=== PATIENT | female | born 1970 | race Caucasian/White ===

== ENCOUNTER → 2020-09-17 11:54 | Outpatient (CLI) | payer MEDICAID, SELFPAY ==
[2017-04-18 21:08] VITALS: BMI 36.9
[2020-09-17 15:21] LABS: Absolute Lymphocyte Count 1.89 X10^3/uL (0.83-4.51); Absolute Neutrophil Count 10.7 X10^3/uL (2.0-7.7); Basophil# 0.05 X10^3/uL; Basophil% 0.4 % (0-1); Eosinophil# 0.04 X10^3/uL; Eosinophils% 0.3 % (0-5); Hematocrit 43.7 % (37-47); Hemoglobin 14.3 g/dL (12.0-15.0); Lymphocyte # 1.89 X10^3/ul (4.0); Lymphocyte % 14.1 % (19-41); Mean Corp Hgb Conc 32.7 g/dL (32-36); Mean Corpuscular Hgb 29.5 pg (27.0-32.0); Mean Corpuscular Volume 90.3 fL (81-99); Mean Platelet Vol. 9.5 fl (6.2-12.0); Monocyte# 0.66 X10^3/uL; Monocyte% 4.9 % (0-10); NRBC Flagged by Analyzer 0 % (0-5); Neutrophil # 10.74 X10^3/uL (2.7-7.7); Neutrophil % 79.9 % (47-70); Platelet Count 366 K/mm3 (150-450); RBC Distribution Width CV 12.8 % (11.6-14.6); RBC Distribution Width SD 42.3 fl (35.1-43.9); Red Blood Count 4.84 M/mm3 (4.2-5.4); White Blood Count 13.4 K/mm3 (4.4-11.0)
== END ==
PROVIDERS: Family Medicine; PCP Family Medicine; Referring Provider Family Medicine; Visit Provider Family Medicine
DX: R10.31 Right lower quadrant pain (principal)
CPT/HCPCS: 36415; 85025

== ENCOUNTER → 2020-09-23 12:20 | Outpatient (CLI) | payer MEDICAID, SELFPAY ==
--- NOTE | 2020-09-23 12:24 | CT_ITS ---
STUDY: CT ABDOMEN AND PELVIS WITH CONTRAST REASON FOR EXAM: Female, 50 years old. Pain, recurrent RADIATION DOSAGE (If Supplied By Facility): CTDIvol = ( 19.25 ) mGy, DLP = ( 2363.69 ) mGycm TECHNIQUE: Transaxial images were obtained from the dome of the diaphragm to the symphysis pubis without oral contrast. Oral and amp; IV Gastrografin and amp; 100mL Isovue-300 was administered. Sagittal and coronal images were reconstructed. Individualized dose optimization techniques were used for this CT. COMPARISON: None. FINDINGS: Visualized lung bases show a noncalcified 9 mm nodule in the left lower lobe on axial image 5. The visualized portions of the heart are within normal limits. Liver shows a large lobulated peripheral enhancing lesion within the left lobe of the liver which becomes more isodense to liver on the delayed images. It measures approximately 7.6 x 6.5 cm. There is also a smaller 2 cm low-density lesion in the dome of the right lobe of the liver which is not seen at all on the delayed images also likely hemangioma. Normal gallbladder and extrahepatic biliary system. Normal spleen. Normal pancreas. Normal bilateral adrenal glands. No obstructive uropathy, there are punctate cortical medullary junction stones in both kidneys. Normal visualized stomach. Normal small intestine. Normal colon. The appendix is visualized and appears normal. Appendix best seen on coronal recon images 61 through 63. Normal abdominal aorta. Normal inferior vena cava. Normal retroperitoneum. Normal urinary bladder. Normal-appearing uterus. There is a 2.9 cm likely ovarian cyst, given patient''s age, follow-up ultrasound is recommended to ensure resolution. Normal abdominal wall. Normal osseous structures. CT/Abdomen/Pelvis WITH Contrast IMPRESSION: 2 separate low-density lesions within the liver, larger is in the left lobe measuring approximate 7.6 cm in greatest dimension the other is in the dome of the right lobe measuring 2 cm. Both become less conspicuous on the delayed images suggesting both are hemangiomas. Bilateral nonobstructing nephrolithiasis No free intraperitoneal fluid, air, or suspicious adenopathy Normal appendix visualized 2.9 cm likely left ovarian cyst. Short-term sonographic follow-up recommended to ensure resolution Electronically Signed: Joel Romero MD at 16:34 EDT , Service support ,
== END ==
PROVIDERS: PCP Family Medicine; Visit Provider Family Medicine
DX: R10.31 Right lower quadrant pain (principal)
CPT/HCPCS: 74177; Q9967

== ENCOUNTER 2020-09-28 09:06 | Emergency (ER) | payer MEDICAID, SELFPAY ==
[2020-09-28 09:08] VITALS: BP 148/107; PULSE 110; RESP 22; TEMP 36.6; O2SAT 99; BMI 34.8
--- NOTE | 2020-09-28 09:36 | VDLE_ITS ---
Reason For Study: pain RIGHT GSV is normal. CFV is compressible, spontaneous, phasic, competent and demonstrates normal augmentation. FV is compressible, spontaneous, phasic, competent and demonstrates normal augmentation. POP V is compressible, spontaneous, phasic, competent and demonstrates normal augmentation. T/P Trunk is compressible. PTV is compressible. RT PerV is compressible. Procedure This is a venous duplex using B-mode, color flow and spectral Doppler. Exam performed portable in ED. The exam was abbreviated due to the COVID 19 protocol. The exam was diagnostic. A preliminary report was called and/or faxed to Dr. Telles. VL/Venous Duplex US, Unilateral Interpretation Summary Deep veins of the right lower extremity are patent and compressible segmentally . There is no evidence of right lower extremity deep vein thrombosis. Valvular competence chirag ears intact within the proximal deep venous system on the right . The right great saphenous vein a ppears patent and compressible segmentally. Ordering Physician: Deidre Telles Performed By: Petar Rivera RVT
--- NOTE | 2020-09-28 09:37 | RAD_ITS ---
STUDY: X-RAY - PELVIS AND RIGHT HIP REASON FOR EXAM: Female, 50 years old. Pain TECHNIQUE: 3 views of the pelvis and right hip. COMPARISON: CT of the abdomen and pelvis dated 09/23/20 FINDINGS: There is a non-specific bowel gas pattern. Normal visualized soft tissue structures. Normal bilateral iliac wings, sacroiliac joints and visualized sacrum. Normal bilateral superior and inferior pubic rami. Normal pubic symphysis. Normal bilateral ischial tuberosities. Normal visualized femoral head. Normal acetabulum. Normal hip joint. There are stable heterotopic ossification adjacent to the right greater trochanter. RAD/HIP, UNI W/ Pelvis 2-3 Views IMPRESSION: No fracture or dislocation in the pelvis or right hip. Electronically Signed: Zeke Lance MD at 10:36 EDT Tel , Service support ,
[2020-09-28] MEDS: Ketorolac 60 MG/2 ML Vial IM (09:44)
[2020-09-28] MEDS: Orphenadrine 60 MG/2 ML Ampul IM (09:45)
--- NOTE | 2020-09-28 11:01 | ED.VISSUMM ---
- ER Visit Summary Date of Service: 09/28/20 Chief Complaint: Right hip pain History of Present Illness: The patient is a 50 F presenting with right hip pain. Patient states this started yesterday. She had gradual onset of pain in her right hip. She denies injury. She tried Tylenol at home. She denies fever. Denies back pain. Denies numbness or weakness. Denies other complaints. Physical Examination: Vitals are stable. Patient is afebrile. Alert no acute distress. HEENT exam is unremarkable. Neck is supple. Lungs are clear and equal bilaterally. Heart is regular rate and rhythm. Abdomen: Soft, nontender, nondistended Back: Nontender Extremities right lateral posterior thigh tenderness. Neurovascularly intact distally. Normal distal pulses. Skin is warm and dry. No focal neurologic deficit. Remainder of exam is unremarkable. Emergency Department Course and Treatment: Venous Doppler ultrasound shows no evidence of DVT. Right hip x-ray read by myself and radiology shows no fracture or dislocation in the pelvis or right hip. Patient was given Toradol, Norflex IM with some improvement. She is given prescription for Naprosyn and Flexeril. Advised follow up with primary care physician. Advised return to the ED for worsening complaints. Disposition: Discharge home Impression: Right lower extremity pain This note was generated with [employer] dictation software. It may contain incorrect words, spelling, and punctuation that were not noted in review of the chart prior to signing ED Disposition - Plan for ED Patient: Disposition: Home or Assisted Living Instructions: ED Muscle Strain, Extremity Prescriptions: cycloBENZAPRine HCl [Flexeril] 10 mg PO TID PRN #20 tab PRN Reason: Muscle Spasm Prescription Printed Naproxen [Naprosyn] 500 mg PO BID PRN #20 tablet Prescription Printed Referrals: Ron Fernández MD [Primary Care Provider] -
--- NOTE | 2020-09-28 11:03 | ED.DEP ---
ED Disposition - Plan for ED Patient: Instructions: ED Muscle Strain, Extremity Prescriptions: cycloBENZAPRine HCl [Flexeril] 10 mg PO TID PRN #20 tab PRN Reason: Muscle Spasm Prescription Printed Naproxen [Naprosyn] 500 mg PO BID PRN #20 tablet Prescription Printed Referrals: Ron Fernández MD [Primary Care Provider] -
[2020-09-28 11:11] VITALS: PULSE 78; RESP 16; O2SAT 97
== END 2020-09-28 11:11 | disposition home or self-care (01) ==
LOC: ED 10:14
PROVIDERS: Emergency Provider Emergency Medicine; PCP Family Medicine
DX: M25.551 Pain in right hip (principal); M79.651 Pain in right thigh
CPT/HCPCS: 73502; 93971; 96372; 99282

== ENCOUNTER → 2020-10-02 | Outpatient (CLI) | payer MEDICAID, SELFPAY ==
[2020-09-28 09:08] VITALS: BMI 34.8
[2020-10-07 12:42] LABS: HPV HC, High Risk Negative
== END | disposition home or self-care (01) ==
PROVIDERS: PCP Family Medicine; Visit Provider Nurse Practitioner Family
DX: Z01.419 Encounter for gynecological examination (general) (routine) without abnormal findings (principal)
CPT/HCPCS: 87624; 88175; G0145

== ENCOUNTER → 2020-10-09 15:23 | Outpatient (CLI) | payer MEDICAID, SELFPAY ==
[2020-09-28 09:08] VITALS: BMI 34.8
[2020-10-09 10:21] LABS: Anion Gap 5 (5-15); BUN 15 mg/dL (7-18); BUN/Creat Ratio 21.6 RATIO (10-20); Calcium,Total 9.4 mg/dL (8.5-10.1); Chloride 109 mmol/L (98-107); Cholesterol 200 mg/dL (200); EST Glomerular Filtration Rate 96 mL/min (>60); Est Glom Filt Rate - Afr Amer 116 mL/min (>60); Glucose 108 mg/dL (74-106); High Density Lipoprotein 56 mg/dL; Potassium 4.2 mmol/L (3.5-5.1); Sodium Level 139 mmol/L (136-145); Triglycerides 49 mg/dL; Very Low Density Lipoprotein 10 mg/dL (5-40)
--- NOTE | 2020-10-09 15:24 | BI_ITS ---
MAMMOGRAPHY - BILATERAL SCREENING REASON FOR EXAM: Female, 50 years old. Routine annual screening examination. PERTINENT HISTORY: Non-contributory. TECHNIQUE: Digital bilateral breast randall (3D mammographic acquisition) in the CC and MLO projections. 2-D mediolateral oblique (MLO) and craniocaudad (CC) views of both breasts were obtained. CAD: Full Field Digital Mammography with Computer Added Detection was performed. COMPARISON: None. Baseline examination. FINDINGS: Breast Composition: The breasts are heterogeneously dense, which may obscure small masses. There are no dominant masses or suspicious calcifications. There is a 7.5 mm well-defined nodule in the upper lateral aspect of the right breast. The central fatty notch is seen suggestive of a lymph node. A similar appearing nodular density seen in the axillary region of the left breast. Correlation with ultrasound of both breasts recommended. No other significant abnormalities are identified. BI/SCRN MAMM (CAD)W/RANDALL BILAT IMPRESSION: Well-defined subcentimeter nodules in the axillary region of the left breast as well as in the upper lateral aspect of the right breast suggestive of a lymph node. Correlation with ultrasound is recommended. ASSESSMENT CATEGORY: BIRADS Category 0: Incomplete. Need additional imaging evaluation. A letter regarding these results will be sent to the patient by the facility within 30 days. Approximately 10% of breast cancers are not detected by mammography. A normal mammogram should not delay biopsy of a clinically suspicious abnormality. [id number] Electronically Signed: Isrrael Frias MD at 8:22 EDT , Service support ,
== END ==
PROVIDERS: PCP Family Medicine; Referring Provider Nurse Practitioner Family; Visit Provider Nurse Practitioner Family
DX: Z12.31 Encounter for screening mammogram for malignant neoplasm of breast (principal); Z13.1 Encounter for screening for diabetes mellitus; Z13.220 Encounter for screening for lipoid disorders
CPT/HCPCS: 36415; 77063; 77067; 80048; 80061

== ENCOUNTER → 2020-10-10 12:27 | Outpatient (CLI) | payer MEDICAID, SELFPAY ==
[2020-09-28 09:08] VITALS: BMI 34.8
--- NOTE | 2020-10-10 12:29 | US_ITS ---
STUDY: ULTRASOUND OF THE FEMALE PELVIS - COMPLETE REASON FOR EXAM: Female, 50 years old. OVARIAN CY LMP: 09/07/2020 TECHNIQUE: Transabdominal TECHNICAL QUALITY: Adequate. COMPARISON: CT 09/23/2020 FINDINGS: The uterus is anteverted and is in a midline position. The uterus measures 12.1 x 6.6 x 5.6 cm. Normal uterine cervix. The endometrium measures 9 mm in thickness, and is fluid distended. 8 mm echogenic area within the endometrium in the fundus the uterus worrisome for an endometrial mass including polyp or carcinoma. Correlation with hysteroscopy would be useful. There is no demonstrated myometrial mass. I.U.D. - The patient does not have an I.U.D. The right ovary is visualized. The right ovary measures 2.2 x 2.4 x 3.0 cm. There is no right ovarian cyst or ovarian mass. There is no visualized right adnexal mass or complex lesion. There is normal arterial and normal venous vascularity. The left ovary is visualized. The left ovary measures 2.7 x 3.9 x 2.1 cm. There is no left ovarian cyst or ovarian mass. There is no visualized left adnexal mass or complex lesion. There is normal arterial and normal venous vascularity. There is no fluid in the cul-de-sac. The pre void volume of the bladder was ml. The post void volume of the bladder was ml. Polycystic ovary disease: No. US/Pelvic (Non ) IMPRESSION: Possible small endometrial mass worrisome for polyp or carcinoma with endometrial fluid. Correlation with hysteroscopy would be useful. No ovarian cyst or Electronically Signed: Oz Feliz MD at 12:40 EDT Tel , Service support ,
== END ==
PROVIDERS: PCP Family Medicine; Referring Provider Family Medicine; Visit Provider Family Medicine
DX: N83.201 Unspecified ovarian cyst, right side (principal)
CPT/HCPCS: 76856

== ENCOUNTER → 2020-10-16 08:04 | Outpatient (CLI) | payer MEDICAID, SELFPAY ==
[2020-09-28 09:08] VITALS: BMI 34.8
--- NOTE | 2020-10-16 08:06 | US_ITS ---
STUDY: ULTRASOUND BREAST - RIGHT REASON FOR EXAM: Female, 50 years old. Abnormal screening mammogram. TECHNIQUE: Axial and longitudinal images of the RIGHT breast were performed with a high resolution ultrasound transducer. # OF IMAGES: 35 COMPARISON: Comparison is made with prior mammogram dated 10/09/2020. FINDINGS: RIGHT Breast: The mammographic abnormality corresponds to an 8 mm x 6 mm x 3 mm well-defined nodule with a central echogenic focus suggesting a fatty hilum and benign appearing lymph node. IMPRESSION: The mammographic abnormality corresponds to an 8 mm x 6 mm x 3 mm lymph node. ASSESSMENT CATEGORY: BIRADS Category 2: Benign. A letter regarding these results will be sent to the patient by the facility within 30 days. Electronically Signed: Isrrael Frias MD at 9:59 EDT , Service support , STUDY: ULTRASOUND BREAST - LEFT REASON FOR EXAM: Female, 50 years old. Abnormal screening mammogram. TECHNIQUE: Axial and longitudinal images of the LEFT breast were performed with a high resolution ultrasound transducer. # OF IMAGES: 35 COMPARISON: Comparison is made with prior mammogram dated 10/09/2020. FINDINGS: LEFT Breast: The mammographic abnormality corresponds to a well-defined 7 mm x 6 mm x 5 mm hypoechoic nodule with central echogenic hilum in keeping with a lymph node. US/Breast Limited Unilateral IMPRESSION: The mammographic abnormality corresponds to a 7 mm x 6 mm x 5 mm lymph node. ASSESSMENT CATEGORY: BIRADS Category 2: Benign. A letter regarding these results will be sent to the patient by the facility within 30 days. Electronically Signed: Isrrael Frias MD at 10:01 EDT , Service support ,
== END ==
PROVIDERS: PCP Family Medicine; Referring Provider Nurse Practitioner Family; Visit Provider Nurse Practitioner Family
DX: N63.10 Unspecified lump in the right breast, unspecified quadrant (principal); N63.20 Unspecified lump in the left breast, unspecified quadrant
CPT/HCPCS: 76642

== ENCOUNTER → 2020-10-17 08:30 | Outpatient (CLI) | payer MEDICAID, SELFPAY ==
[2020-09-28 09:08] VITALS: BMI 34.8
[2020-10-17 10:54] LABS: Anion Gap 5 (5-15); BUN 11 mg/dL (7-18); Calcium,Total 9.3 mg/dL (8.5-10.1); Chloride 109 mmol/L (98-107); Creatinine, Serum 0.69 mg/dL (0.55-1.02); EST Glomerular Filtration Rate 97 mL/min (>60); Est Glom Filt Rate - Afr Amer 117 mL/min (>60); Glucose 103 mg/dL (74-106); Potassium 3.6 mmol/L (3.5-5.1); Sodium Level 139 mmol/L (136-145)
== END ==
PROVIDERS: Nurse Practitioner Family; PCP Family Medicine; Referring Provider Family Medicine; Visit Provider Family Medicine
DX: R73.01 Impaired fasting glucose (principal); I10 Essential (primary) hypertension
CPT/HCPCS: 36415; 80048; 83036

== ENCOUNTER → 2020-11-28 08:20 | Outpatient (CLI) | payer MEDICAID, SELFPAY ==
[2020-11-28 10:16] LABS: Anion Gap 4 (5-15); BUN 11 mg/dL (7-18); BUN/Creat Ratio 17.4 RATIO (10-20); Calcium,Total 9.1 mg/dL (8.5-10.1); Chloride 107 mmol/L (98-107); Creatinine, Serum 0.63 mg/dL (0.55-1.02); EST Glomerular Filtration Rate 107 mL/min (>60); Est Glom Filt Rate - Afr Amer 129 mL/min (>60); Glucose 106 mg/dL (74-106); Potassium 3.8 mmol/L (3.5-5.1); Sodium Level 141 mmol/L (136-145); Thyroid Stim Hormone (TSH) 1.84 uIU/mL (0.358-3.74)
== END ==
PROVIDERS: PCP Family Medicine; Referring Provider Nurse Practitioner Family; Visit Provider Nurse Practitioner Family
DX: R53.83 Other fatigue (principal); I10 Essential (primary) hypertension
CPT/HCPCS: 36415; 80048; 84443

== ENCOUNTER 2021-01-19 08:53 | Day surgery (SDC) | payer MEDICAID, SELFPAY ==
[2021-01-15 11:14] LABS: Hematocrit 38.4 % (37-47); Hemoglobin 12.5 g/dL (12.0-15.0); Mean Corp Hgb Conc 32.6 g/dL (32-36); Mean Corpuscular Hgb 28.5 pg (27.0-32.0); Mean Corpuscular Volume 87.7 fL (81-99); Mean Platelet Vol. 9.1 fl (6.2-12.0); Platelet Count 340 K/mm3 (150-450); RBC Distribution Width CV 13.2 % (11.6-14.6); RBC Distribution Width SD 42.1 fl (35.1-43.9); Red Blood Count 4.38 M/mm3 (4.2-5.4); White Blood Count 7.9 K/mm3 (4.4-11.0)
[2021-01-15 11:25] LABS: International Normalized Ratio 1.1; Prothrombin Time (Protime)PT. 13.4 SECONDS (11.7-14.9)
[2021-01-15 11:26] LABS: Partial Thromboplast Time 30.9 Seconds (24.1-36.2)
[2021-01-15 11:33] LABS: Internal QC Validated? YES +Cl - CLEAR BKGD; Pregnancy, Serum, hCG Quali. NEGATIVE Negative
--- NOTE | 2021-01-18 13:08 | HP.PCM_ITS ---
History and Physical Date of Admission: 01/19/21 Surgical History and Physical Kalie Mcginnis, a 50 year old female 4 0 0 0 4, presents for D and C and hysteroscopy on January 19, 2021 at 10:25. -- Endometrial Poliyp on U/S -- Persistent abdominal pain that felt like labor pains. Pt has been dealing w/ this intermittently for years, but it has recently increased in frequency. U/S and CT done at [facility] reveals uterine polyp. Pt has regular menses, LMP 11/17/20. No abnormal bleeding present. This may be an incidental finding but given that the polyp is present, we plan to proceed with a D for removal and pathologic diagnosis. This may or may not be associated with the abdominal pain that Kalie has been having. MEDICATIONS HISTORY: Patient is also takin. hydrochlorothiazide 12.5 mg tablet, One pill by mouth once a day ALLERGIES: NKA Infections - Chicken pox and CONDYLOMA Illnesses - no serious past illnesses Accidents - no injuries of consequence Hospitalizations - Childbirth and see surgery Review of Systems: GENERAL - uterine polyp SKIN - Denies skin changes EYES - Denies visual changes EARS - Denies difficulty hearing NOSE - Denies nasal congestion or bleeding MOUTH - Denies sore throat or difficulty swallowing NECK - Denies pain or swelling RESPIRATORY - Denies shortness of breath or wheezing CARDIOVASCULAR - Denies palpitations or chest pain GASTROINTESTINAL - Denies nausea, vomiting, diarrhea, constipation GENITOURINARY - Denies dysuria, frequency of urination, incontinence of urine MUSCULOSKELETAL - Denies joint or muscle pain NEUROLOGICAL - Denies localized numbness or weakness PSYCHIATRIC - Denies depression or anxiety ENDOCRINE - Denies heat or cold intolerance, weight loss or gain HEMATO-IMMUNOLOGIC - Denies excesive bleeding with cuts SOCIAL HISTORY: Alcohol Use - denies drinking Smoking - denies smoking Diet - no special diet Lifestyle - low stress lifestyle and Exercise - regular Employer - [employer] Job Description - part service Illicit Drug Use - denies use of street drugs Sexual Activity - [employer] Hours Worked - 20-25 Spouse-Sig Other Name - KAYLA Spouse-Sig Other Occupation - SALES Children Name(s) - MARK LOVETT Maxwell Control - vasectomy FAMILY HISTORY: Maternal history of Heart Disease. Paternal history of throat cancer. Father: Prostate cancer. Maternal Grandmother: DM II. MENSTRUAL HISTORY: LMP Known?- DefiniteAmount/Duration - 4-5 DAYS, Regularity - Regular, LMP - 12/20/20, Age Onset Menarche - 15 PAST PREGNANCIES: Total Pregnancies - 4; Full Term Pregnancies - 4; Premature - 0; Abortions, Induced - 0; Abortions, Spontaneous - 0; Ectopics - 0; Multiple Births - 0; Living Children - 4 SURGICAL HISTORY: 1. 1983 foot surgery 2. WISDOM TEETH PHYSICAL EXAM BP- 136/88 Sitting, Right arm, regular cuff Weight- 240.22652 lbs Height- 69 inch BMI:35.5 CONSTITUTIONAL - NAD, well nourished, and well developed SKIN - No rash, lesions, or ulcers HEENT - Normocephalic, PERRLA, EOMI NECK - No nodes, no nuchal rigidity and thyroid normal size and texture LYMPH NODES - Palpation of lymph nodes in neck and groins within normal limits LUNGS - CTA x2 without wheezes, crackles or rales CARDIAC - Regular rate and rhythm without rubs, murmurs, or gallops ABDOMEN - Without hepatosplenomegaly, distention, masses, rebound, or guarding; normal bowel sounds; no hernias EXTREMITIES - No edema or calf tenderness NEUROLOGICAL - Cranial nerves II-XII grossly intact PSYCHIATRIC - A and O to time, place, person, mood and affect External Genitial Vagina - non-tender without lesions Urethra/Urethral Meatus - non-tender Bladder - non-tender Vagina - vaginal walker are pink and moist without loss of rugae and no evidence of atropy Cervix - without cervical motion tenderness and has normal size and features without evident lesions Uterus - multiparous size 6 cm & wt 75-125 g Adnexa - clear without massess or tenderness Rectal - deferred as patient is Pap - deferred as done by PCP recently ASSESSMENT/PLAN: 1. Polyp Of Corpus Uteri Uncertain etiology of abdominal pain but likely gastrointestinal. Also likely incidental finding of endometrial polyp. Discussed options for treatment and plan to proceed with Hysteroscopy and D and C. Discussed RBAs and all questions answered.
[2021-01-19 09:24] LABS: Internal QC Validated? YES +Cl - CLEAR BKGD; Pregnancy, Urine Negative Negative
[2021-01-19 09:25] VITALS: BP 163/98; PULSE 84; RESP 16; TEMP 36.1; O2SAT 97; BMI 35.6
[2021-01-19] MEDS: Lactated Ringers 1,000 ML 100 ML IV ×2 (09:45→12:13)
--- NOTE | 2021-01-19 10:25 | EMB_PTH ---
PATIENT: RICHI PRATT LOC: [facility] [place] U#:[id number] AGE/SX: 50/F ROOM: RE01/19/[address]: Dr. Ned Martines MD : 1970 BED: DIS: 01/19/2021 SPEC #: [id number] RECD: 01/20/21 13:27 STATUS: RONY REGera #: [id number] LAURA: 01/19/21 10:[address]: Ned Martines DEPT: SURGICAL PATHOLOGY RECD BY: Brigid Castillo ENTERED: 01/20/21 13:00 SP TYPE: ENDOM BX/C OTHR DR: Geo Fernández MD Tissues: Endometrium, NOS Procedures: Surgery Specimen Level IV HEADER OPERATION: Hysteroscopy, dilation and curettage PRE-OP DIAGNOSIS: Polyp of corpus uteri TISSUE SUBMITTED: Endometrial curettings with polyp MICROSCOPIC DIAGNOSIS Endometrial curettings with polyp: Proliferative endometrium. Fragments of myometrium. Fragments of benign ecto- and endocervical mucosa. See comment. SJ:adair 01/21/2021 COMMENT A few of the fragments have polypoid appearance and may represent fragments of polyp. MICROSCOPIC DESCRIPTION Slides are reviewed. GROSS DESCRIPTION Received in fixative is one container labeled with the patient's name and designated endometrial curettings and polyp. The specimen consists of multiple irregular fragments of red-freeman soft tissue that in aggregate measure 4 x 4 x 0.2 cm. The specimen is totally submitted in two cassettes. / AM:adair 01/20/21 TC:5 CPT: 39548
--- NOTE | 2021-01-19 11:46 | OP.PCM_ITS ---
Report of Operation Date of Procedure: 01/19/21 Pre-Operative Diagnosis: Endometrial Polyp Post-Operative Diagnosis: Endometrial Polyp Surgery/Procedure Performed:: Diagnostic Hysteroscopy, Dilation and Curettage Description of Surgical Findings:: 8 cm endometrial cavity with approximately a 2 cm endometrial polyp noted in the posterior aspect of the uterus. Some possible 2-3 submucous fibroids noted with the curette near the fundus of the uterus. Cervix with minimal descensus with tenaculum pulldown so robotic assisted vaginal hysterectomy would be warranted should hysterectomy ever be needed. Surgeon: Ned Martines Type of Anesthesia: Local MAC Anesthesiologist: Josefa Galeano Specimen's removed: Endometrial curettings with endometrial polyp Estimated Blood Loss (mL): Minimal Fluids Replaced: Crystalloid Description of Procedure: Surgeon: Ned Martines MD, FACOG Indications: This is a 50 year old patient who was recently noted on CT scan and ultrasound to have an endometrial polyp present. The patient has been counseled regarding the risk and indications of this procedure including the possibility of bleeding, infection, and injury to surrounding structures such as bowel bladder. All questions were answered and we consider the patient well- informed. Procedure: The patient was taken to the operating room where after induction of general anesthesia, she was placed in the dorsolithotomy position and prepped and draped in the usual sterile fashion. Anterior cervix was grasped with the tenaculum and dilated to about 4-5 mm. A 3 mm hysteroscope was placed in the uterus of the above findings were noted. Cervix was dilated to about 7-8 mm and uterus was gently curetted removing all contents. Hysteroscope was reinserted and all material was noted to be removed. In the course of the procedure approximately 100 cc of saline distending media was used and virtually all of this was recovered. Patient tolerated procedure well was taken to recovery room in satisfactory condition sponge instrument and needle counts were all reportedly correct. Estimated blood loss for the case was minimal. Grafts/Implants Used: None Complications None Admit VTE Documentation VTE Present on Admission: Yes VTE Mechan Device Prophylaxis: SCD's
--- NOTE | 2021-01-19 11:55 | DCINST_ITS ---
Discharge Instructions Diet Discharge Diet: No restrictions Activity Discharge Activity: Return to Normal Activity, May Shower and May Take a Tub Bath May resume sexual activity in: 1 week Additional Activity Instructions:: Nothing in vagina for about 1 week. Dressing / Incision Call your doctor if you observe: Inability to urinate and Inability to have a bowel movement Follow Up Care Please Follow Up With: Ned Martines MD When: 2 to 3 weeks Test Results: Test results from this visit will be discussed in further detail at your follow-up appointment, if applicable. Discharge Plan Admission Primary Reason for Your Visit: Endometrial Polyp Attending Provider: Ned Martines Primary Care Provider: Ron Fernández Discharge Orders/Prescriptions Prescriptions: No Action calcium carbonate [Calcium 600] 600 mg calcium (1,500 mg) Tablet 600 mg PO DAILY RF: 0 hydrochlorothiazide 25 mg tablet 25 mg PO DAILY RF: 0 biotin 500 mcg Capsule 1 mg PO DAILY RF: 0 magnesium 200 mg Tablet 400 mg PO DAILY RF: 0 [place] 3 Capsule 1,000 mg PO DAILY RF: 0 cholecalciferol (vitamin D3) [Vitamin D3] 50 mcg (2,000 unit) Capsule 50 mcg PO DAILY RF: 0 Referrals / Follow Up: Ron Fernández MD [Primary Care Provider] - Disposition Disposition (needs filled in before D/C Order can be placed): Home, Self Care
[2021-01-19 12:00] VITALS: BP 135/83; BP 163/98; PULSE 80; RESP 16; TEMP 36.3; O2SAT 94
[2021-01-19 12:05] VITALS: BP 134/87; BP 163/98; PULSE 79; RESP 16; O2SAT 95
[2021-01-19 12:10] VITALS: BP 158/88; BP 163/98; PULSE 87; RESP 14; O2SAT 96
[2021-01-19 12:15] VITALS: BP 138/82; BP 163/98; PULSE 78; RESP 16; TEMP 36.7; O2SAT 96
[2021-01-19 14:07] VITALS: BP 153/78; BP 163/98; PULSE 78; RESP 16; TEMP 36.8; O2SAT 100
== END 2021-01-19 14:10 | disposition home or self-care (01) ==
LOC: SDC 08:54 → AC 08:55
PROVIDERS: Anesthesiology; PCP Family Medicine; Referring Provider Obstetrics & Gynecology; Visit Provider Obstetrics & Gynecology
PROC: 0UDB8ZZ Extraction of Endometrium, Via Natural or Artificial Opening Endoscopic (ICD-10-PCS; CPT 58558; principal; 2021-01-19 10:15)
DX: N84.0 Polyp of corpus uteri (principal); I10 Essential (primary) hypertension; G25.81 Restless legs syndrome; Z79.899 Other long term (current) drug therapy
CPT/HCPCS: 58558; 36415; 81025; 84703; 85027; 85610; 85730; 86850; 86900; 86901; 87426; 88305; C9803; J7120; J2405

== ENCOUNTER → 2021-04-13 | Outpatient (CLI) | payer MEDICAID, SELFPAY | END | disposition home or self-care (01) | LOC: LABSPEC 10:15 | PROVIDERS: PCP Family Medicine; Referring Provider Registered Nurse; Visit Provider Registered Nurse | DX: N39.0 Urinary tract infection, site not specified (principal) ==

== ENCOUNTER → 2023-01-06 | Outpatient (CLI) | payer MEDICAID, SELFPAY ==
--- NOTE | 2023-01-06 12:42 | RAD_ITS ---
EXAM: XR RIGHT KNEE COMPLETE, 4 OR MORE VIEWS CLINICAL INDICATION: pain TECHNIQUE: Four or more views of the right knee. COMPARISON: No relevant prior studies available. FINDINGS: BONES/JOINTS: Mild narrowing of the medial compartment, without surrounding osteophytes. The lateral joint space is preserved. Minimal degenerative spurring about the patellofemoral compartment. No acute fracture. No subluxation. Normal alignment. No sclerotic or destructive changes observed. SOFT TISSUES: Minimal suprapatellar knee effusion is suspected. No radiopaque foreign body. RAD/Knee 4 or More Views IMPRESSION: Mild degenerative narrowing of the medial compartment of the knee. Minimal knee effusion. No acute fracture or dislocation. Electronically Signed: Basilio Urrutia MD at 1:21 EDT ,
[2023-01-06 15:39] LABS: Absolute Neutrophil Count 5.2 X10^3/uL (2.0-7.7); Basophil# 0.06 X10^3/uL; Basophil% 0.7 % (0-1); Eosinophil# 0.19 X10^3/uL; Eosinophils% 2.4 % (0-5); Hematocrit 39.8 % (37-47); Hemoglobin 13.3 g/dL (12.0-15.0); Lymphocyte % 26.1 % (19-41); Mean Corp Hgb Conc 33.4 g/dL (32-36); Mean Corpuscular Hgb 29.2 pg (27.0-32.0); Mean Corpuscular Volume 87.3 fL (81-99); Mean Platelet Vol. 9.5 fl (6.2-12.0); Monocyte# 0.46 X10^3/uL; Monocyte% 5.7 % (0-10); NRBC Flagged by Analyzer 0 % (0-5); Neutrophil # 5.21 X10^3/uL (2.7-7.7); Neutrophil % 64.9 % (47-70); Platelet Count 300 K/mm3 (150-450); RBC Distribution Width CV 13.5 % (11.6-14.6); RBC Distribution Width SD 42.5 fl (35.1-43.9); Red Blood Count 4.56 M/mm3 (4.2-5.4)
[2023-01-06 15:48] LABS: Erythrocyte Sedimentation Rate 5 mm/hr (0-30)
[2023-01-06 16:58] LABS: Vitamin B12 997 pg/mL (211-911); Vitamin D,25 Hydroxy 33.5 ng/mL
[2023-01-06 17:02] LABS: AST(SGOT) 13 U/L (15-37); Alanine Aminotransfer ALT/SGPT 19 U/L (13-56); Albumin, Serum 3.7 g/dL (3.2-5.0); Alkaline Phosphatase 67 U/L (45-117); Anion Gap 9 (5-15); BUN 13 mg/dL (7-18); BUN/Creat Ratio 17.9 RATIO (10-20); Calcium,Total 8.9 mg/dL (8.5-10.1); Chloride 108 mmol/L (98-107); Creatinine, Serum 0.73 mg/dL (0.55-1.02); EST Glomerular Filtration Rate 90 mL/min (>60); Est Glom Filt Rate - Afr Amer 109 mL/min (>60); Ferritin 21 ng/mL (8-252); Free T3 2.7 pg/mL (2.18-3.98); Globulin 3.7 g/dL (2.2-4.2); Glucose 92 mg/dL (74-106); Potassium 3.9 mmol/L (3.5-5.1); Protein, Total 7.4 g/dL (6.4-8.2); Sodium Level 140 mmol/L (136-145); T4 Free Direct 0.95 ng/dL (0.76-1.46); Thyroid Stim Hormone (TSH) 1.73 uIU/mL (0.358-3.74)
== END | disposition home or self-care (01) ==
LOC: MTLAB 12:35
PROVIDERS: PCP Family Medicine; Visit Provider Family Medicine
DX: M25.569 Pain in unspecified knee (principal); R53.83 Other fatigue
CPT/HCPCS: 83540; 36415; 73564; 80053; 82306; 82533; 82607; 82728; 84439; 84443; 84481; 85025; 85652

== ENCOUNTER 2023-02-11 08:00 | Outpatient (RCR) | payer MEDICAID, SELFPAY ==
--- NOTE | 2023-01-20 09:58 | HP.PTEVAL_ITS ---
Patient's Visit Information Visit Information Visit Information: RICHI PRATT is a 52 year old F referred to Physical Therapy by Dr. Ron Fernández MD with a diagnosis of Right Knee. Date of Evaluation: 01/20/23 Physical Therapist: Emely Sanchez DPT Visit Plan Frequency: 2x /Week Duration: 4 Weeks Plan: Aquatics- focus on LE and core strength/stabilization in a pain free environment Subjective Subjective: Patient reports right knee pain for months she was doing crossfit- she was doing box jumps- she thought maybe she tore something- went to the MD and they did x-rays and it showed OA. They gave her Meloxicam and sent her to PT. She has taken it but has not noticed a difference. She has days that she better than others. She has more pain with sleeping on her side, mowing, weeding, squatting, bending. Worst: 7/10 Eases: Hot Tub Best: 1/10. The pain is located on the medial side of the knee- describes the pain as sharp and shooting. No pain that radiates. Work: [employer]- walking, standing, sitting- carrying up to #50. X-ray of Right Knee: Mild narrowing of the medial compartment, without surrounding osteophytes. The lateral joint space is preserved. Minimal degenerative spurring about the patellofemoral compartment. Workout- crossfit- not currently working out due to the pain but really needs/want to get back to it. Very active person. Sleep: disturbed. PMHx/Meds: none Objective Objective: Posture: FH, RS- can correct with verbal cues Gait: no deviation noted Stairs: asc/desc recip with no HR- mild decr control with descent- reports mild discomfort HR/TR: able with no UE SLS: 15 sec with mild increase in sway Palpation: tender along medial joint line Strength: Hip: 4+/5 throughout, Knee: 5/5, Ankle: 5/5 Edema: none noted ROM: 0-135 with pain at end range flexion Flex: HS: moderate, Gastroc: moderate Special Tests R Knee Tess - Meniscus: Positive R Knee Valgus - MCL: Positive Balance/Special Test Scores Lower Extremity Functional Score: 59 Goals Goal 1:: Patient will be I with HEP and progression Goal Time Frame: 4-6 Weeks Goal 2:: Patient will asc/desc 8 stairs recip with no HR and good control with descent Goal Time Frame: 4-6 Weeks Goal 3:: Patient will report 80% improvement Goal Time Frame: 4-6 Weeks Rehabilitation Potential Physical Therapy Diagnosis: Patient presents with hypomobility- she has decreased pain free ROM, LE and core strength/stabilization, flex and muscular endurance leading to abnormal gait and increased pain with ADL's. Rehabilitation Potential: Good Anticipated Interventions Patient/Client Instruction: Educate patient on: Benefits of Fitness Program Therapeutic Exercise to Include: Strength training, Endurance training, Balance training, Coordination, Agility training, Body mechanics, Postural training, Flexibilty training, Gait and locomotor training, Neuromotor development, In an aquatic setting, Dynamic Lumbar Stabilization and Scapular Strength/Stabilization Text: Thank you for the opportunity to evaluate your patient. For Medicare and Medicare HMO plans, please review the plan of care and approve it. It will need to be FAXED BACK to us at [phone] for Medicare purposes. For Medicare only, by signing this I certify the plan of care. Please let me know if there are questions or concerns regarding this plan of care. Physician Signature: Date:
--- NOTE | 2023-02-11 08:19 | HP.PTDCSUM ---
Discharge Summary D/C summary: It has been my pleasure to treat RICHI PRATT referred by Dr. Ron Fernández MD, with the diagnosis of Right Knee for a total of 6 visit(s). Discharge Date: Please see the following information for a summary of their discharge status. Subjective Subjective: Patient reports that her leg varies- some days are great and some are not so good. This past week she is not sleeping because the leg is so achy. Worst: 09/20. She pivoted and has been pretty sore since then. Pain RLE: Pain Intensity (Out of 10): 4 Overall Improvement % Improvement: 25 Objective Objective/Function: Posture: FH, RS- can correct with verbal cues Gait: no deviation noted Stairs: asc/desc recip with no HR- mild decr control with descent- reports mild discomfort HR/TR: able with no UE SLS: 15 sec with mild increase in sway Palpation: tender along medial joint line Strength: Hip: 4+/5 throughout, Knee: 5/5, Ankle: 5/5 Edema: none noted ROM: 0-135 with pain at end range flexion Flex: HS: moderate, Gastroc: moderate Goals Goal 1:: Patient will be I with HEP and progression Goal 2:: Patient will asc/desc 8 stairs recip with no HR and good control with descent Goal 3:: Patient will report 80% improvement Plan Plan: 02/11/23: Discharge and return to MD for further evaluation Aquatics- focus on LE and core strength/stabilization in a pain free environment D/C Information d/c sentence: If there are questions or concerns regarding this patient's physical therapy, please feel free to call me at [phone]. Thank you for the referral of this patient. Sincerely, Emely Sanchez, DPT Balance/Gait/Functional tests Balance/Special Test Scores Lower Extremity Functional Score: 57 Improvement % Improvement: 25
== END 2023-02-11 08:54 | disposition home or self-care (01) ==
LOC: PT 08:00
PROVIDERS: PCP Family Medicine; Referring Provider Family Medicine; Visit Provider Family Medicine
DX: M25.561 Pain in right knee (principal)
CPT/HCPCS: 97113; 97162; 97164

== ENCOUNTER → 2023-04-14 | Outpatient (CLI) | payer MEDICAID, SELFPAY ==
--- NOTE | 2023-04-14 10:28 | MRI_ITS ---
STUDY: MRI RIGHT KNEE REASON FOR EXAM: Female, 52 years old. Anteromedial right knee pain. No known injury. TECHNIQUE: Standardized fat and water weighted pulse sequences were obtained in all 3 orthogonal planes. COMPARISON: Right knee radiographs dated 01/06/2023. FINDINGS: There is a horizontal-oblique undersurface tear of the body and posterior horn of the medial meniscus (sagittal PD series 4 images 30-35). There is degenerative arthrosis of the medial femorotibial compartment with joint space narrowing, tiny marginal osteophyte formation, moderate to high-grade chondromalacia, and subchondral marrow edema in the medial tibial plateau. Normal medial collateral ligamentous complex (MCL). Normal distal semimembranosus, gracilis and semitendinosus tendons. Normal lateral meniscus. Normal hyaline cartilage of the lateral femorotibial compartment. Normal lateral femoral condyle and tibial plateau. Normal proximal tibiofibular articulation. Normal lateral collateral (fibular) ligament. Normal popliteus tendon. Normal biceps femoris tendon. Normal anterior cruciate ligament (ACL). There is thinning of the PCL fibers, probably the sequelae of a remote PCL injury. There is low-grade chondromalacia patellae. Congruent patellofemoral articulation. Normal medial and lateral patellar retinaculum. Normal quadriceps tendon. Normal patellar tendon. There is a small joint effusion. There is no popliteal cyst. The soft tissues are unremarkable. There is no acute fracture. MRI/Lower Ext Joint Only (Routine) IMPRESSION: Horizontal-oblique undersurface tear of the body and posterior horn of the medial meniscus. Moderate degenerative arthrosis of the medial femorotibial compartment. Low-grade chondromalacia patellae. Thinning of the PCL fibers, probably the sequelae of a remote PCL injury. Small joint effusion. Electronically Signed: Geraldo Contreras MD at 12:16 EDT ,
== END | disposition home or self-care (01) ==
LOC: MRI 10:15
PROVIDERS: PCP Family Medicine; Referring Provider Family Medicine; Visit Provider Family Medicine
DX: M25.569 Pain in unspecified knee (principal)
CPT/HCPCS: 73721

== ENCOUNTER → 2024-06-26 | Outpatient (CLI) | payer OTHER, SELFPAY ==
--- NOTE | 2024-06-26 15:18 | CT_ITS ---
CT RIGHT LOWER EXTREMITY WITH 3-D IMAGING CLINICAL INDICATION: Templating for right TKA. TECHNIQUE: Axial CT images of the right lower extremity (including right hip, right knee, and right ankle) was performed without IV contrast material. Coronal and sagittal reformats were provided. The protocol utilizes one or more of the following dose reduction techniques: automated exposure control, adjustment of mA and/or kV according to patient size, and/or use of iterative reconstruction technique. RADIATION DOSAGE (If Supplied By Facility): CTDIvol = ( 18.76 ) mGy, DLP = ( 1440.88 ) mGycm COMPARISON: Right knee radiographs dated 04/13/2024. FINDINGS: Bones: Normal right hip joint. There is moderate to severe degenerative arthrosis of the medial femorotibial compartment of the right knee with joint space narrowing, small marginal osteophyte formation, and subchondral sclerosis/cyst formation. There is a small plantar calcaneal spur in the right ankle. Osseous structures are intact without evidence of fracture or dislocation. No lytic or blastic osseous masses. Soft Tissues: There is a moderate right knee joint effusion. The deep soft tissue structures are unremarkable. The superficial soft tissues are unremarkable without evidence of edema, hematoma, or foreign body. CT/Extremity Lower without Contra IMPRESSION: Moderate to severe degenerative arthrosis of the medial femorotibial compartment of the right knee. Moderate right knee joint effusion. Electronically Signed: Geraldo Contreras MD at 16:00 EST Reading Location ID and State: [facility] / [place] , Service support ,
== END | disposition home or self-care (01) ==
LOC: CT 15:18
PROVIDERS: PCP Family Medicine; Referring Provider Orthopaedic Surgery; Visit Provider Orthopaedic Surgery
DX: M17.11 Unilateral primary osteoarthritis, right knee (principal)
CPT/HCPCS: 73700

== ENCOUNTER 2024-07-03 08:38 | Day surgery (SDC) | payer OTHER, SELFPAY ==
[2024-06-21 11:56] LABS: Absolute Neutrophil Count 4.3 X10^3/uL (2.0-7.7); Basophil# 0.08 X10^3/uL; Basophil% 1.1 % (0-1); Eosinophil# 0.28 X10^3/uL; Hematocrit 41.2 % (37-47); Hemoglobin 13.6 g/dL (12.0-15.0); Lymphocyte % 26.8 % (19-41); Mean Corpuscular Hgb 28.9 pg (27.0-32.0); Mean Corpuscular Volume 87.7 fL (81-99); Mean Platelet Vol. 9.3 fl (6.2-12.0); Monocyte# 0.44 X10^3/uL; Monocyte% 6.2 % (0-10); NRBC Flagged by Analyzer 0 % (0-5); Neutrophil # 4.29 X10^3/uL (2.7-7.7); Neutrophil % 60.6 % (47-70); Platelet Count 289 K/mm3 (150-450); RBC Distribution Width CV 12.2 % (11.6-14.6); RBC Distribution Width SD 39.2 fl (35.1-43.9); White Blood Count 7.1 K/mm3 (4.4-11.0)
[2024-06-21 12:04] LABS: International Normalized Ratio 1.1; Partial Thromboplast Time 28.6 Seconds (24.1-36.2)
--- NOTE | 2024-06-21 12:04 | EKG12_ITS ---
Test Reason : PREOP Blood Pressure : */* mmHG Vent. Rate : 78 BPM Atrial Rate : 78 BPM P-R Int : 158 ms QRS Dur : 98 ms QT Int : 402 ms P-R-T Axes : 59 96 32 degrees QTcB Int : 458 ms Normal sinus rhythm Rightward axis Abnormal ECG Confirmed by Taj Coulter ([id number]), editor magazine [employer] CLAROS ([id number]) on 06/22/2024 5:57:25 AM Referred By: Kiet Sanchez Confirmed By: Taj Coulter
[2024-06-21 12:21] LABS: Vitamin D,25 Hydroxy 64.9 ng/mL
[2024-06-21 12:23] LABS: Anion Gap 7 (5-15); BUN 18 mg/dL (7-18); BUN/Creat Ratio 30.2 RATIO (10-20); Chloride 108 mmol/L (98-107); EST Glomerular Filtration Rate 112 mL/min (>60); Est Glom Filt Rate - Afr Amer 136 mL/min (>60); Glucose 98 mg/dL (74-106); Magnesium 2.3 mg/dL (1.6-2.6); Potassium 4.1 mmol/L (3.5-5.1); Sodium Level 138 mmol/L (136-145)
[2024-06-21 12:24] LABS: Hemoglobin A1c 5.2 % (3.8-5.6)
--- NOTE | 2024-06-22 23:43 | PAT.ANE_ITS ---
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 When Was Last Pacemaker Check QUESTION #4 FULL TEXT: You/Your Family Experience fever (hyperthermia) with Anesthesia Last Oral Intake Last Oral intake: Last Oral Intake NPO since Meds taken in AM with sips of water? Meds patient instructed to take am of surgery PONV PONV - aircraft systems technician: PONV - aircraft systems technician Female Yes 06/18/24 14:25 HX of Motion Sickness Yes 06/18/24 14:25 HX of N/V After Surgery No 06/18/24 14:25 Non-Smoker Yes 06/18/24 14:25 Duration of Surgery greater Yes 06/18/24 14:25 than 60 minutes Number of Risk Factors 4 06/18/24 14:25 PONV Score Severe Risk 06/18/24 14:25 Height & Weight Height & Weight: Anesthesia: Height & Weight Height 5 ft 9 in 04/13/24 08:33 Respiratory Assessment Respiratory Assessment - aircraft systems technician: Respiratory Tract Infection Hx - aircraft systems technician Hx Respiratory Tract Infection No 06/18/24 14:25 STOP Sleep Apnea STOP Sleep Apnea - aircraft systems technician: STOP Sleep Apnea - aircraft systems technician Hx Hypertension Yes: NO MEDS 06/18/24 14:25 Hx Sleep Apnea No 06/18/24 14:25 CPAP BIPAP Do you snore loudly (louder No 06/18/24 14:25 than talking or can be heard Do you often feel tired/ No 06/18/24 14:25 fatigued/ sleepy during daytime? Has anyone observed you stop No 06/18/24 14:25 breathing during sleep? STOP Results Negative 06/18/24 14:25 QUESTION #5 FULL TEXT : Do you snore loudly (louder than talking or can be heard through closed doors)? 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 Specify any problems Hx of Preganancy in last 3 No 06/18/24 14:25 Months Nurse Filling Out Transfusion LIZZY 06/18/24 14:25 & Questions: Date: 06/18/24 06/18/24 14:25 Time: 14:27 06/18/24 14:25 Patient unable to answer at this time (ie. confused, unrespo /Reproduction History /Reproductive History - aircraft systems technician: /Reproductive Hx- aircraft systems technician Hx Now No 06/18/24 14:25 Gestational Age (in weeks): EDC: Hx Hx Para Hx Section SAB No 06/18/24 14:25 [facility] [place] Medical History (Updated 06/18/24 @ 14:37 by Cora Vides) History of steroid therapy Arthritis Non-smoker Osteoarthritis of left knee Left knee pain Tear of medial meniscus of right knee Osteoarthritis of right knee Wears glasses Wears contact lenses Restless legs Hypertension Home Medications ?Medication ?Instructions ?Recorded ?Last Taken ?Type biotin 500 mcg capsule 1 mg PO DAILY 01/12/21 Unknown History calcium carbonate (Calcium 600) 600 mg PO DAILY 01/12/21 Unknown History cholecalciferol (vitamin D3) 50 50 mcg PO DAILY 01/12/21 Unknown History mcg (2,000 unit) capsule (Vitamin D3) magnesium 200 mg tablet 400 mg PO DAILY 01/12/21 Unknown History omega-3 fatty acids 1,000 mg PO DAILY 01/12/21 Unknown History meloxicam 15 mg tablet 15 mg PO DAILY 04/28/23 Unknown History Allergy/AdvReac Type Severity Reaction Status Date / Time No Known Allergies Allergy Verified 06/18/24 14:21 Surgical History (Updated 06/18/24 @ 14:25 by Cora Vides) History of dilation and curettage Hx of wisdom tooth extraction Hx of foot surgery Social History Smoking Status: Never smoker Audit: Pertinent Findings Pertinent Findings EKG Perinent findings: June 21, 2024. Normal sinus rhythm. Rightward axis deviation. Recommendation Anesthesia Recommendation Anesthesia recommendation: OPTIMIZED for anesthesia
[2024-06-24 07:06] LABS: Fructosamine 206 umol/L (0-285)
[2024-07-03] VITALS (11 sets, daily range): BP systolic 111–149; BP diastolic 63–97; PULSE 65–88; RESP 16–20; TEMP 36.6–37.1; O2SAT 97–100; BMI 38.5
[2024-07-03] MEDS: 0.9% Normal Saline (1000mL) 1,000 ML 15 ML IV (09:28)
[2024-07-03] MEDS: Scopolamine 1mg/72hr Patch 1 PATCH TD (09:29)
[2024-07-03] MEDS: Magnesium 1 GM over 15 mins IV (09:29)
[2024-07-03] MEDS: Acetaminophen 500 MG Tablet 1000 MG PO ×2 (09:29→15:59)
[2024-07-03] MEDS: Gabapentin 600 MG Tablet PO (09:29)
[2024-07-03] MEDS: Celecoxib 200 MG Capsule 400 MG PO (09:29)
[2024-07-03 09:54] LABS: Internal QC Validated? YES +Cl - CLEAR BKGD; Pregnancy, Serum, hCG Quali. NEGATIVE Negative
--- NOTE | 2024-07-03 09:58 | PCM.HP.BLA ---
History and Physical Date of Admission: 07/03/24 [facility] [address] [place] [address] OFFICE VISIT Date of Service: 04/13/24 MR#: [id number] Acct: [id number] Name: RICHI PRATT Rep #: [id number] : 1970 Provider: Dr. Kiet Sanchez DO Age/Sex: 53/F Location: [facility] [place] Status: Signed Intake Vital Signs 04/28/2313:26 03/22/2414:48 04/13/2408:33 Height 5 ft 9 in 5 ft 9 in 5 ft 9 in Weight: 244 lb 6 oz BMI 36.1 Intake Visit Reasons: RIGHT KNEE Chief Complaint: BL knees Is patient in pain?: Yes (BL knees ) Pain scale (1-10): 4 Allergies No Known Allergies Allergy (Verified 04/13/24 08:34) Medications ?Medication ?Instructions ?Recorded ?Confirmed ?Type biotin 500 mcg capsule 1 mg PO DAILY 01/12/21 04/13/24 History calcium carbonate (Calcium 600) 600 mg PO DAILY 01/12/21 04/13/24 History cholecalciferol (vitamin D3) 50 50 mcg PO DAILY 01/12/21 04/13/24 History mcg (2,000 unit) capsule (Vitamin D3) magnesium 200 mg tablet 400 mg PO DAILY 01/12/21 04/13/24 History omega-3 fatty acids 1,000 mg PO DAILY 01/12/21 04/13/24 History meloxicam 15 mg tablet mg PO 04/28/23 04/13/24 History PFSH Medical History Osteoarthritis of left knee Left knee pain Tear of medial meniscus of right knee Osteoarthritis of right knee Wears glasses Wears contact lenses Restless legs Hypertension Surgical History Hx of wisdom tooth extraction Hx of foot surgery Social History Smoking Status: Never smoker HPI RIGHT KNEE Details: This documentation accurately reflects the service provided and the decisions made by me, Dr. Kiet Sanchez DO 04/13/24 0733. Part of today?s visit was documented by Niya GARZA, acting as scribe. RICHI PRATT is a 53 year old F here today referred by Dr. Hernandez for BL knee osteoarthritis. She complains of BL knee pain, right greater then left. that she describes as a sharp constant pain that has progressively getting worse over the last few months. Stairs have become very difficult for her to navigate. as she does have anterior and lateral and medial pain on her right knee. medial only on left. She also feels grinding in both of her knees. She has received steroid injections and reports they are helpful but they do not last long. She denies previous surgery or injury to her knees. She started having knee pain a few years ago, she had seen Dr Hernandez for knee pain after an injury in [employer] and she had an MRI which did show a meniscus tear. She has done PT to try and strengthen the knee. She hasn't had any surgery. Both knees are painful but the right is worse. Her right knee pain is over her anterior knee and feels a grinding over her lateral compartment. She has had 2 steroid injection and 1 series of Euflexxa with Dr. Hernandez. Ortho Exam General General: Yes no acute distress Neurologic: Yes alert and Yes oriented x3 Psychologic: Yes reasonable and appropriate Right Knee Skin/Wound: No erythema, No ecchymosis and Yes swelling Knee ROM: Yes ROM-Extension -20 to 0 and Yes ROM-Flexion 0-140 (118) Examination: No Med jt line tenderness, No Lat jt line tenderness, No TTP inf pole patella, Yes Crepitus, Yes Pain with flexion, No TTP Patellar tendon, No TTP Tibial tubercle and No TTP Pes Anserine Stability: NML: Anterior Drawer and NML: Posterior Drawer and 1+: Valgus 0, 1+: Valgus 30 (3 mm medial gapping secondary to joint space narrowing), 1+: Varus 0 and 1+: Varus 30 (1 mm lateral gapping) Patella Translation: 1 Patella Grind: Yes KNEE: grade 2 joint effusion no patellar instability She does have pain and crepitation with patellar grind Left Knee Skin/Wound: No ecchymosis, No erythema and No swelling Knee ROM: Yes ROM-Extension -20 to 0 (-4) and Yes ROM-Flexion 0-140 (120) Examination: Yes med jt line tenderness, No Lat jt line tenderness, No Crepitus, No Pain with flexion, No Tess's Test, No TTP Pes Anserine and No Illiotibial band tenderness Stability: NML: Anterior Drawer, NML: Posterior Drawer, NML: Valgus 0, NML: Valgus 30, NML: Varus 0 and NML: Varus 30 Patella Translation: 1 KNEE: no effusion Head: Normocephalic Atraumatic Chest: symmetrical rise, non-labored breathing, no audible wheeze Abdomen: no guarding, non-rigid Supplemental Info 04/13/2024 x-ray right knee: Advanced medial compartment arthrosis with varus deformity 04/13/2024 x-ray left knee: Mild to moderate medial joint space narrowing mild spurring 10/28/2023 x-ray left knee: Joint space narrowing medially with osteophytes preserved lateral and patellofemoral compartment 04/14/2023 MRI right knee: Horizontal oblique undersurface tear posterior horn medial meniscus there is degenerative arthrosis of the medial compartment with joint space narrowing small marginal osteophytes moderate to high-grade chondromalacia subchondral marrow edema of the medial tibial plateau low-grade chondromalacia patella thinning of the PCL Coding Level of Care Code Off vis,est,level 3 Diagnoses Primary osteoarthritis of left knee M17.12 Osteoarthritis type: primary Primary osteoarthritis of right knee M17.11 Osteoarthritis type: primary Assessment and Plan Assessment and Plan (1) Osteoarthritis of left knee: Status: Acute Qualifiers: Osteoarthritis type: primary Qualified Code(s): M17.12 - Unilateral primary osteoarthritis, left knee (2) Osteoarthritis of right knee: Status: Acute Qualifiers: Osteoarthritis type: primary Qualified Code(s): M17.11 - Unilateral primary osteoarthritis, right knee Orders: Orders Knee 4 or More Views Today M17.12 - Unilateral primary osteoarthritis, left knee Knee 4 or More Views Today M17.11 - Unilateral primary osteoarthritis, right knee Plan Educated patient on anatomy and etiology of her knee. Reviewed xrays taken today of her right knee which does show advanced arthritis of her medial compartment and a lesser extent of the patellofemoral compartment. We discussed surgical nonsurgical options including partial versus total knee arthroplasty, we discussed recovery. Of both I do have a concerned that she is having anterior knee pain with stairs and lateral mechanical symptoms and pain with some degenerative changes seen on x-ray she may have continued pain after partial knee replacement or require revision to a total down the road versus proceeding directly with a total knee arthroplasty although a bigger procedure more definitive and predictable outcome. Risk benefits of both reviewed and she does wish to proceed with a total knee arthroplasty. Risks, benefits and alternatives of surgery reviewed including but not limited to bleeding, infection, nerve, artery and/or tissue damage, fracture, VTE, mechanical feel of the knee, continued pain, stiffness and expected post-operative course.?Reviewed the pre-operative plans with the patient. Risks and benefits of the procedure were fully explained, including but not limited to infection, neurovascular injury, continued pain, arthritis, stiffness, need for further surgery, re-injury, DVT, PE, general risks of anesthesia, and loss of limb or life. The patient understands all the risks and does wish to proceed with written consent. Advised patient that for her recovery for a total knee replacement we tell people to plan for 3 month off of work. Informed her that for the first year after a knee replacement she will need an anti-biotic for any dental work. After the 1 year bret she will need it only for procedures and should also hold off on any dental work for 3 months post operatively. Regarding her left knee I reviewed the xrays which do show mild to moderate arthritis in the medial compartment but not severe enough for joint arthroplasty. Her treatment options are do nothing, steroid injection, viscosupplementation injection, NSAIDs or a TKA. She can take 1000mg of Tylenol on top of the Meloxicam if she needs it. Advised patient that she may need a total replacement on the left knee in the future but for now I would recommend continuing with NSAIDs and injections, weight loss and strengthening. Plan for tentative surgery date May 24 same-day surgery will need CT scan and medical clearance will need to hold his NSAIDs for 7 days preop. 04/13/24 1016 <Electronically signed by Kiet Sanchez DO> Date Kiet Sanchez DO Cosigner Signature: Date (if applicable) CC: ~ I have examined the patient and the H&P has been reviewed. There are no clinical changes since date of exam.
--- NOTE | 2024-07-03 09:59 | PRE.ANES_ITS ---
ASA Classification* ASA Classification ASA Classification: 2 Assessment & Plan Anesthesia* Anesthesia Assessment Anesthesia Assessment: Discussed sedation and/or anesthesia options, risks, benefits, and alternatives with patient/parents/legal guardian/POA. Questions invited. The patient/parents/legal guardian/POA seems to understand and agrees to proceed with anesthesia plan. Reviewed the physical assessment, medical history, allergy history and patient home medications list prior to surgery/procedure/anesthetic and documented any changes. Performed airway and anesthesia risk assessments. Anesthesia Type Anesthesia Type: Spinal and Block (Patient is consented for adductor canal block) History Source History Obtained from:: Patient and Chart Anesthesia Focused Assessment* Temperature: 98.8 F Pulse Rate: 86 Blood Pressure: 149/97 Respiratory Rate: 16 Pulse Ox: 98 Oxygen Delivery Method: Room Air Airway Assessment Mouth opens: >3 cm Mallampati Score: I Teeth Condition: Caps/Crowns (Patient has left upper molar crown. It is tight. Rest are tight.) Neck Range of motion (ROM): Full ROM Focused Labs Anesthesia Preop lab: CBC WBC 7.1 K/mm3 (4.4-11.0) 06/21/24 11:14 RBC 4.70 M/mm3 (4.2-5.4) 06/21/24 11:14 Hgb 13.6 g/dL (12.0-15.0) 06/21/24 11:14 Hct 41.2 % (37-47) 06/21/24 11:14 Plt Count 289 K/mm3 (150-450) 06/21/24 11:14 CHEMISTRY Potassium 4.1 mmol/L (3.5-5.1) 06/21/24 11:14 Sodium 138 mmol/L (136-145) 06/21/24 11:14 Magnesium 2.3 mg/dL (1.6-2.6) 06/21/24 11:14 BUN 18 mg/dL (7-18) 06/21/24 11:14 Creatinine 0.60 mg/dL (0.55-1.02) 06/21/24 11:14 Glucose 98 mg/dL (74-106) 06/21/24 11:14 TSH 1.73 uIU/mL (0.358-3.74) 01/06/23 12:38 COAG PT 14.0 SECONDS (11.7-14.9) 06/21/24 11:14 Urine Test Negative Negative 01/19/21 09:11 Pre-Assessment Diagnosis/Proposed Procedure Planned Operative Procedure(s): (R) ERAS, Right Total Knee Replacement Robotic Arm Assisted Anesthesia History Anesthesia History - quality assurance monitor body: Anesthesia History - quality assurance monitor body Hx Hospitalization No 06/18/24 14:25 Any Problems With Anesthesia No 06/18/24 14:25 Cholinesterase deficiency No 06/18/24 14:25 You/Your Family Experience No 06/18/24 14:25 fever (hyperthermia) with Relationship Recent Exposure to Contagious No 07/03/24 09:17 Disease Does patient have nerve No 06/18/24 14:25 stimulator Patient instructed to have device shut off --Does patient have Pacemaker No 07/03/24 09:17 or ICD? When Was Last Pacemaker Check QUESTION #4 FULL TEXT: You/Your Family Experience fever (hyperthermia) with Anesthesia Last Oral Intake Last Oral intake: Last Oral Intake NPO since 20:00 07/03/24 09:17 Meds taken in AM with sips of No 07/03/24 09:17 water? Meds patient instructed to take am of surgery PONV PONV - quality assurance monitor body: PONV - quality assurance monitor body Female Yes 06/18/24 14:25 HX of Motion Sickness Yes 06/18/24 14:25 HX of N/V After Surgery No 06/18/24 14:25 Non-Smoker Yes 06/18/24 14:25 Duration of Surgery greater Yes 06/18/24 14:25 than 60 minutes Number of Risk Factors 4 06/18/24 14:25 PONV Score Severe Risk 06/18/24 14:25 Height & Weight Height & Weight: Anesthesia: Height & Weight Height 5 ft 8 in 07/03/24 09:17 Weight: 114.9 kg 07/03/24 09:17 Body Mass Index (BMI) 38.5 07/03/24 09:17 Respiratory Assessment Respiratory Assessment - quality assurance monitor body: Respiratory Tract Infection Hx - quality assurance monitor body Hx Respiratory Tract Infection No 06/18/24 14:25 STOP Sleep Apnea STOP Sleep Apnea - quality assurance monitor body: STOP Sleep Apnea - quality assurance monitor body Hx Hypertension Yes: NO MEDS 06/18/24 14:25 Hx Sleep Apnea No 06/18/24 14:25 CPAP BIPAP Do you snore loudly (louder No 06/18/24 14:25 than talking or can be heard Do you often feel tired/ No 06/18/24 14:25 fatigued/ sleepy during daytime? Has anyone observed you stop No 06/18/24 14:25 breathing during sleep? STOP Results Negative 06/18/24 14:25 QUESTION #5 FULL TEXT : Do you snore loudly (louder than talking or can be heard through closed doors)? Tobacco Use History Tobacco Use History - quality assurance monitor body: Tobacco Use History - quality assurance monitor body Tobacco Use Smoking Status Never smoker 06/18/24 14:25 Hx Tobacco Use No 06/18/24 14:25 Years Smoking Packs Smoked per Day Smoking Cessation Date was within the last 15 years Hx Smoking Cessation Date Hx Smoking Cessation Counseling Hematologic Medial History Hematologic Hx - quality assurance monitor body: Hematologic Medical Hx - family living educator Hx of Blood Transfusion No 06/18/24 14:25 Hx of Transfusion in last 3 No 06/18/24 14:25 Months Date of Last Transfusion (if within last 3 months) Ever experience any problems No 06/18/24 14:25 with transfusion(s)? Specify any problems Hx of Preganancy in last 3 No 06/18/24 14:25 Months Nurse Filling Out Transfusion MGRIFFITH 06/18/24 14:25 & Questions: Date: 06/18/24 06/18/24 14:25 Time: 14:27 06/18/24 14:25 Patient unable to answer at this time (ie. confused, unrespo /Reproduction History /Reproductive History - quality assurance monitor body: /Reproductive Hx- quality assurance monitor body Hx Now No 06/18/24 14:25 Gestational Age (in weeks): EDC: Hx Hx Para Hx Section SAB No 06/18/24 14:25 Active Medications Active Medications: Current Medications Generic Name Dose Route Start Last Admin Trade Name Freq PRN Reason Stop Dose Admin Acetaminophen 1,000 mg 07/03/24 10:45 07/03/24 09:29 Acetaminophen 500 Mg Tablet PO 07/03/24 10:46 1,000 mg X1 ONE Administration Celecoxib 400 mg 07/03/24 10:45 07/03/24 09:29 Celecoxib 200 Mg Capsule PO 07/03/24 10:46 400 mg X1 ONE Administration Dexamethasone Sodium Phosphate 10 mg 07/03/24 10:45 Dexamethasone 10 Mg/Ml Vial IV 07/03/24 10:46 X1 ONE Gabapentin 600 mg 07/03/24 10:45 07/03/24 09:29 Gabapentin 600 Mg Tablet PO 07/03/24 10:46 600 mg X1 ONE Administration Cefazolin Sodium 2 gm/ N/A 20 mls @ 400 mls/hr 07/03/24 10:45 IV 07/03/24 10:47 PREOP ONE Tranexamic Acid 1,000 mg/ 110 mls @ 660 mls/hr 07/03/24 10:45 Sodium Chloride IV 07/03/24 10:54 X1 ONE Tranexamic Acid 1,000 mg/ 110 mls @ 660 mls/hr 07/03/24 10:45 Sodium Chloride IV 07/03/24 10:54 X1 ONE Lactated Ringer's 1,000 mls @ 125 mls/hr 07/03/24 10:45 IV 07/03/24 18:44 .Q8H JAY JAY Magnesium Sulfate 1 gm/ 102 mls @ 408 mls/hr 07/03/24 10:45 07/03/24 09:29 Dextrose IV 07/03/24 10:59 408 mls/hr X1 ONE Administration Sodium Chloride 1,000 mls @ 15 mls/hr 07/03/24 08:50 07/03/24 09:28 IV 07/08/24 22:09 15 mls/hr .Q48H JAY JAY Administration Protocol Insulin Human Lispro 1 - 6 unit 07/03/24 10:45 Insulin Lispro 100 Unit/Ml Insuln.Pen SC Q4H PRN PRN BG>/= 180, SEE PROTOCOL Protocol Scopolamine HBr 1 patch 07/03/24 10:45 07/03/24 09:29 Scopolamine 1mg/72hr Patch TD 07/03/24 10:46 1 patch X1 ONE Administration PFSH Medical History History of steroid therapy Arthritis Non-smoker Osteoarthritis of left knee Left knee pain Tear of medial meniscus of right knee Osteoarthritis of right knee Wears glasses Wears contact lenses Restless legs Hypertension Home Medications ?Medication ?Instructions ?Recorded ?Last Taken ?Type biotin 500 mcg capsule 1 mg PO DAILY 01/12/21 Unknown History calcium carbonate (Calcium 600) 600 mg PO DAILY 01/12/21 Unknown History cholecalciferol (vitamin D3) 50 50 mcg PO DAILY 01/12/21 Unknown History mcg (2,000 unit) capsule (Vitamin D3) magnesium 200 mg tablet 400 mg PO DAILY 01/12/21 Unknown History omega-3 fatty acids 1,000 mg PO DAILY 01/12/21 Unknown History meloxicam 15 mg tablet 15 mg PO DAILY 04/28/23 06/27/24 History Allergy/AdvReac Type Severity Reaction Status Date / Time No Known Allergies Allergy Verified 07/03/24 09:12 Surgical History History of dilation and curettage Hx of wisdom tooth extraction Hx of foot surgery Social History Smoking Status: Never smoker Review of Systems (Anesthesia) ROS Narrative System reviewed and no additional complaints, except as documented.
[2024-07-03 10:07] LABS: Bedside Glucose 84 mg/dL (74-106)
--- NOTE | 2024-07-03 10:45 | KNEE_PTH ---
PATIENT: RICHI PRATT LOC: [facility] U#:[id number] AGE/SX: 54/F ROOM: RE07/03/[address]: Dr. Kiet Sanchez DO : 1970 BED: DIS: 07/03/2024 SPEC #: [id number] RECD: 07/03/24 15:12 STATUS: RONY REGera #: [id number] LAURA: 07/03/24 10:[address]: Kiet Sanchez DEPT: SURGICAL PATHOLOGY RECD BY: Brigid Castillo ENTERED: 07/04/24 08:48 SP TYPE: TOTAL KNEE OTHR DR: Dr. Geo Fernández MD Tissues: Knee, NOS Procedures: Decalcification bone/plaque Surgery Specimen Level IV HEADER OPERATION: Right total knee replacement robotic arm assist PRE-OP DIAGNOSIS: Osteoarthritis of right knee TISSUE SUBMITTED: Right knee bone and tissue MICROSCOPIC DIAGNOSIS Bone and soft tissue, right knee, total knee replacement/resection: Pieces of bone with degenerative osteoarthritic changes. SJ:mr 07/06/2024 MICROSCOPIC DESCRIPTION Slides are reviewed. GROSS DESCRIPTION Received is one container designated bone and soft tissue right knee. The specimen consists of multiple fragments of freeman-yellow bone measuring in aggregate 10 x 10 x 3 cm. No soft tissue is identified. A number of bony fragments contain articular surfaces consistent with tibial plateau and femoral condyle and displaying prominent osteophyte formation, eburnation and bone erosion. Director Channel sections are submitted in one cassette after decalcification. / IGLESIA. 07/04/2024 TC:5 CPT: 06406, 48807
[2024-07-03] MEDS: Cefazolin 2 GM in Syringe 10 ML IV (10:55)
[2024-07-03] MEDS: TXA 1000mg in NS100 100ml (IVPB at Incision) 660 MG IV (10:55)
[2024-07-03] MEDS: dexAMETHasone 10 MG/ML Vial IV (11:00)
[2024-07-03] MEDS: TXA 1000mg in NS100 100ml (IVPB at Closure) 660 MG IV (11:30)
[2024-07-03] MEDS: 0.9% Normal Saline (Pres. free 10 ML Vial (12:19)
[2024-07-03] MEDS: dexAMETHasone 4 MG/ML Vial (12:19)
[2024-07-03] MEDS: Bupivacaine 0.5% PF 10 ML VIAL (12:19)
[2024-07-03] MEDS: Epinephrine (1 mg/ml) 1 MG/ML VIAL (12:19)
--- NOTE | 2024-07-03 13:06 | OP.PCM_ITS ---
Operative Report (Standard) Operative Information Date of Procedure: 07/03/24 Pre-Operative Diagnosis: Right knee DJD Post-Operative Diagnosis: Same Surgery/Procedure Performed: Right total knee arthroplasty oak tanner: Yes Director Of Audiology: [place] Elam Tasks completed by first calender worker: Opening & closing Type of Anesthesia: Spinal RN Documented Start/Stop Times: Operation Date: 07/03/24 10:45 Case Time Into Pre-Op 07/03/24 08:45 Anesthesia Start 07/03/24 10:49 Into Room 07/03/24 10:49 Procedure Start 07/03/24 11:16 Procedure End 07/03/24 13:00 Anesthesia End 07/03/24 13:06 Out of Room 07/03/24 13:06 Procedure Start Time: 11:16 Procedure Stop Time: 13:00 Select all DRAINS/GRAFTS/IMPLANTS that apply: Prosthetic device Prosthetic device details: Reny triathlon Estimated Blood Loss: 200 Specimen collected: Yes Description of specimen(s) removed: Bone and soft tissue Description of surgery: Preoperative diagnosis: Right knee DJD Postoperative diagnosis: Same Procedure: Right total knee arthroplasty CT guided Robotic Assisted Implant: [place] triathlon press fit, femoral component size 4, tibial baseplate size 5, asymmetric patella size 38, polyethylene X3 size 9 CS Anesthesia: Spinal with adductor canal block Tourniquet time: 12 minutes at 300 mmHg Complications: None Condition: Stable to PACU Estimated blood loss: 200 cc Desk Attendant [place] Elam. My physician family and divorce legal assistant was a vital part of this case. He was important in appropriate retraction during the case, and protection of soft tissues during procedure. His intimate knowledge of the case and my steps aided in safe and expedient completion of the procedure as well as appropriate position of the extremity during the case. He was also vital in assisting with closure under my direct supervision. Indication for procedure: This is a 54-year-old female with long standing degenerative joint disease of the knee who has failed conservative treatment and wished to proceed with elective total knee arthroplasty. Risk benefits and alternatives were reviewed including; risk of bleeding, infection, nerve artery and tissue damage, continued pain, postoperative stiffness, venous thromboembolism, need for postoperative rehabilitation, mechanical feel to the knee, and expected postoperative course. The pre- operative CT and templating was performed with component sizing. Procedure: The patient was met in the preoperative holding area. The operative extremity was identified by both patient and physician and was marked. Patient was met by anesthesia. An adductor canal block was placed by anesthesia postoperatively the patient was brought back to the operating room on a wheeled cart and transferred to the operating table in the supine position. Anesthesia was started. A well-padded tourniquet was placed on the operative extremity. The patient was prepped and draped in the usual sterile fashion. A timeout was called to ensure the proper patient procedure and extremity were being contemplated. An esmarch was used to exsanguinate the extremity. The tourniquet was inflated. A 10 blade scalpel was used to make a midline incision down through the skin and subcutaneous tissue. Skin retractors placed. Bovie and Aquamantis were used to perform meticulous hemostasis. full-thickness flaps were elevated medial and lateral along the joint capsule. A deep blade scalpel was used to perform a medial parapatellar arthrotomy. The knee was brought to full extension. A bovie was used to release the soft tissues off the most proximal aspect of the medial tibial plateau, a three-quarter inch curved osteotome was also used in this process. The infrapatellar fat pad was excised. The suprapatellar fat pad was excised partially anteriorolateraly and portion the anterioromedial pad was elevated from the femur. At this point our intra- articular femoral array was placed at a 45 degree angle proximal and posterior t o the medial epicondyle. femoral checkpoint was placed at this time. Our tibial array was placed partially intra incisional 1 stab incision was made for the inferior pin with a 15 blade scaple, and pins were placed and attached to the tibial array , tibial checkpoint was placed in the proximal tibial metaphysis. Tourniquet was let down. At this point registration oliveros were taken throughout the knee . Once the knee was registered we then tensioned the medial and lateral ligaments in extension and 90 degrees of flexion. We then used these numbers to adjust our components within parameters to balance the knee in both flexion and extension once this was done on our monitor we then proceeded with using the robotic arm to make our tibial plateau cut, anterior and posterior chamfer and distal femur cuts. we removed the cut fragments with the use of a bovie and Irene, we did use a lamina billet driller to insure we visualized and removed all posterior osteophytes and at this time also used the Aquamantis on the posterior joint capsule. we then trialed and achieved the desired plan with a well-balanced knee. we used the green probe to bret the corresponding tibial rotation based on our CT template. Lug holes were drilled in the femur the tibia preparation was completed with the appropriate sized base plate pinned based on previous rotation bret. An appropriate sized fin punch was used on the tibia and 4 corner drill was used for the press fit component and the patella was prepared by first using a caliper to ensure sufficient bone stock and a patellar reamer to remove the desired amount of bone. lug holes drilled for an asymmetric poly. We then brought the knee through range of motion with excellent patellar tracking. We thoroughly irrigated the knee. Trial components were removed a posterior capsular injection was preformed with our standard cocktail. In addition the aqua Mantis was also used to aid in hemostasis. Betadine rinse was allowed to sit and washed out completely. Components were press-fit into place. Aricept rinse was then used followed by several more liters of irrigation after it was allowed to sit. The joint capsule was closed with #1 Ethibond [id number] in the upper part of the arthrotomy and #1 Vicryl in the lower part of the arthrotomy. , Followed by 2-0 Vicryl in the subcutaneous tissues with froy in the skin. Arrays and checkpoints were removed prior to closure all counts were correct stab incisions were closed with a staple standard dressing in the form of Mepilex AG for the main incision and a small Mepilex over the pin holes. Thigh-high MADHAV hose applied over top of dressing. Patient tolerated the procedure well and was directed to PACU in stable condition . There were no intraoperative complications. Surgical Findings: DJD knee Complications Complications: No
--- NOTE | 2024-07-03 13:07 | PCM.POST.ANE ---
Anesthesia: Postop Eval I Current Vital Signs Temperature: 98.5 F Pulse Rate: 87 Blood Pressure: 133/82 Respiratory Rate: 16 Pulse Ox: 100 Oxygen Delivery Method: Room Air Assessment Airway patent: Yes Spontaneous unlabored respirations: Yes Mental status: Awake and Calm nausea: No Vomiting: No Anesthesia Complication: No Fluid Hydration Crystalloid volume administer (ml): 1,800 Total IV fluid infused: 1,800 Progress Note Anesthesia document: Postop Eval 1 completed: Yes
--- NOTE | 2024-07-03 13:08 | DCINST_ITS ---
Discharge Instructions Diet Discharge Diet: No restrictions (Minimize sweets and carbohydrates as hyperglycemia in the perioperative period can increase risk of infection) Activity Weight Bearing Status: Full weight bearing Dressing / Incision Call your doctor if you observe: Shortness of breath and Chest pain Additional Dressing/Incision Instructions:: Ice and elevate lower extremities 2 weeks while not ambulating. Ambulation is encouraged. Weight bearing as tolerated. Use assistive devise for stability. Encourage FULL knee extension and flexion 1 time EVERY time you get up and down and MULTIPLE times per day. No showering until 72 hours after surgery. May begin showering postop day #3. Remove the dressing prior to shower and gently wash with warm water and antibacterial soap then pat dry and place abdominal pad (or plain gauze) and MADHAV hose over top. This is to be done daily. Do not submerge for 3 weeks. If not showering daily after the initial 72 hours then you must clean incision and change dressing daily after the dressing comes off, must come off by 7 days postop. Do not allow animals near the incision area. Keep clean. Follow anti- coagulation recommendations as prescribed. Do not take any NSAIDs while on blood thinner. Do not take any additional narcotic pain medication other than what was prescribed on your surgery day without discussing with physician. Narcotic medication can be addictive. Do not drink alcohol while taking narcotics. Supplement narcotic prescription with acetaminophen 1000 mg 4 times a day. Start physical therapy. If you are not currently scheduled for physical therapy or you are unsure of appointment time please call office [facility] to arrange. Call Dr. Sanchez with any concerns. Follow Up Care Please Follow Up With: Kiet Sanchez DO When: 2 weeks Test Results: Test results from this visit will be discussed in further detail at your follow- up appointment, if applicable. Discharge Plan Admission Primary Reason for Your Visit: Right total knee arthroplasty Attending Provider: Kiet Sanchez Primary Care Provider: Geo Fernández Instructions Print Language: Greek Discharge Orders/Prescriptions Prescriptions: New acetaminophen 500 mg tablet 1,000 mg PO Q6H Qty: 100 0RF cephalexin 500 mg capsule 1,500 mg PO Q8H Qty: 6 0RF Rx Instructions: Take 2 tabs before you go to bed and 2 tabs after 5 AM morning after surgery when you wake up oxycodone 5 mg tablet 5 - 10 mg PO Q4H PRN (Reason: pain) 7 Days Qty: 60 0RF Eliquis 2.5 mg tablet 2.5 mg PO BID Qty: 30 0RF Rx Instructions: Begin morning after surgery. Continued calcium carbonate [Calcium 600] 600 mg calcium (1,500 mg) Tablet 600 mg PO DAILY biotin 500 mcg Capsule 1 mg PO DAILY magnesium 200 mg Tablet 400 mg PO DAILY cholecalciferol (vitamin D3) [Vitamin D3] 50 mcg (2,000 unit) Capsule 50 mcg PO DAILY Held meloxicam 15 mg tablet 15 mg PO DAILY Hold Instructions: May resume after completion of blood thinner if needed omega-3 fatty acids Capsule 1,000 mg PO DAILY Hold Instructions: May resume after completion of blood thinner Other Ambulatory Orders: 12 Lead EKG (Routine) Timeframe: [id number] Location: None Selected Ordered By: Dr. Kiet Sanchez Referrals / Follow Up: Geo Fernández MD [Primary Care Provider] - Disposition Disposition (needs filled in before D/C Order can be placed): Home, Self Care
[2024-07-03] MEDS: 0.9% Normal Saline (1000mL) 1,000 ML 125 ML IV (13:35)
--- NOTE | 2024-07-03 13:35 | RAD_ITS ---
EXAM: XR RIGHT KNEE, 1 OR 2 VIEWS CLINICAL INDICATION: Postop -- in PACU TECHNIQUE: Frontal and/or lateral views of the right knee. COMPARISON: CT scan of the right knee 06/26/2024. FINDINGS: BONES/JOINTS: Right total knee arthroplasty. Components appear well seated. Gas within the right knee joint. No acute fracture. No subluxation. Normal alignment. No sclerotic or destructive changes observed. SOFT TISSUES: Gas in the soft tissues anterior to the knee. No radiopaque foreign body. RAD/Knee 1 or 2 Views IMPRESSION: Status post right total knee arthroplasty with components well seated. Residual gas in the knee joint and in the soft tissues. Electronically Signed: aTj Maguire MD at 5:58 EST ,
[2024-07-03] MEDS: oxyCODONE 5 MG Tablet PO (16:34)
[2024-07-03] MEDS: Cefazolin 2 GM in Syringe IV (16:39)
--- NOTE | 2024-07-03 20:31 | PCM.POSTANE2 ---
Anesthesia Postop Eval I Sum Postop Eval Completion status Anesthesia document: Postop Eval 1 completed: Yes Anesthesia Postop Eval I Summary Anesthesia Postop Eval I Summary: Anesthesia Postop Eval I: Assessment Summary Airway patent Yes 07/03/24 20:31 Spontaneous unlabored Yes 07/03/24 20:31 respirations Mental status Awake,Calm 07/03/24 20:31 nausea No 07/03/24 20:31 Vomiting No 07/03/24 20:31 Anesthesia Postop Eval I: Fluid Summary Crystalloid volume administer 1,800 07/03/24 20:31 (ml) Colloids volume administered ( ml) Blood Product volume administered (ml) Total IV fluid infused 1,800 07/03/24 20:31 Anesthesia Postop Eval I: Summary Notes Anesthesia Complication No 07/03/24 20:31 Anesthesia Complication Comment: Post-operative progress note Anesthesia: Postop Eval II Evaluation Mental status: Awake and Calm Pain Level: 1 nausea: No Vomiting: No Complications Anesthesia Complication: No
== END 2024-07-03 17:16 | disposition home or self-care (01) ==
LOC: SDC 08:38 → AC 08:38
PROVIDERS: Anesthesiology; PCP Family Medicine; Referring Provider Orthopaedic Surgery; Visit Provider Orthopaedic Surgery
PROC: 0SRC0JZ Replacement of Right Knee Joint with Synthetic Substitute, Open Approach (ICD-10-PCS; CPT 27447; principal; 2024-07-03 10:15)
DX: M17.0 Bilateral primary osteoarthritis of knee (principal); I10 Essential (primary) hypertension
CPT/HCPCS: 27447; S2900; 64450; 01402; 36415; 73560; 80048; 82306; 82962; 82985; 83036; 83735; 84703; 85025; 85610; 85730; 86850; 86900; 86901; 87077; 87081; 88305; 88311; 93005; 97162; C1776; J2405; J3475

== ENCOUNTER 2024-09-07 15:00 | Outpatient (RCR) | payer OTHER, SELFPAY ==
--- NOTE | 2024-07-09 09:01 | HP.PTEVAL ---
Patient's Visit Information Visit Information Visit Information: RICHI PRATT is a 54 year old F referred to Physical Therapy by Dr. Kiet Sanchez DO with a diagnosis of R TKA, DOS 07/03/24. Date of Evaluation: 07/06/24 Physical Therapist: Michel Irvin DPT Visit Plan Frequency: 2-3x /Week Duration: 6 Weeks Plan: 1) edema control, progressive R knee ROM, pain control 2) glute, quad, HS activation progressing to functional strengthening. 3) gait progressing to No AD. Subjective Subjective: Pt. is here today for her initial evaluation with diagnosis of R TKA. DOS: 07/03/24. Pt. arrives with use of FWW and with spouse. Pt. reports overall doing okay today. Not as painful as she was the day before. Pt. reports doing her exercises as prescribed. No calf pain, no chills, no fever. Pt. denies N/T as well. She is overall pleased thus far. She is having some trouble sleeping, but not too bad. Pt. has been icing as prescribed. Pt. is sleeping, but her knee does wake her up at night. She has been walking with FWW with good tolerance. She is hopeful to get back to all household and recreational activities without limitations. Pain R knee: Pain Intensity (Out of 10): 5 Pain Intensity Range: 3 and 8 Objective Objective: POSTURE: Pt. has decent WBing throughout BLEs. Slight increased wt. shift to L side. PALPATION: bandage in place. Pt. to take off this weekend. Pt. has no calf pain with palpation. 5 cm difference in mid patella edema. NEURO: Pt. has normal sensation in BLEs. Pt. has normal achilles dTR. PT. is able to rise on heels and toes with balance aide. ROM: R knee: 0-3-90deg. PROM 0-0-95deg. Pt. has slight tightness in B HS. MMT: R knee: ext 3#, flexion 8#; hip: flexion 0#, abd 5#, ext 5#. GAIT: Pt. ambulates with FWW with slight lack of TKE, but decent knee flexion during swing. Good tolerance to WBing. STAIRS: step to pattern noted with use of BUEs on HRs. Balance/Special Test Scores TUG Test Time Seconds: 28.9 30 Second Chair Rise Test Seconds: 7 WOMAC Total Score: 72 WOMAC Percentatge: 25.0000 Goals Goal 1:: LTG: Pt. to be I with HEP. Goal Time Frame: 6-8 Weeks Goal 2:: LTG: Pt. to have increased R knee ROM to 0-0-120deg. Goal 3:: LTG: Pt. have symmetrical BLE strength. Goal Time Frame: 4-6 Weeks Goal 4:: STG: Pt. to be able to sleep throughout the night without increase in symptoms. Goal Time Frame: 4-6 Weeks Goal 5:: LTG: pt. to be able to ambulate with normal gait pattern without use of AD. Goal Time Frame: 4-6 Weeks Goal 6:: LTG: Pt. to complete TUG with time less than 8sec without AD. Goal Time Frame: 4-6 Weeks Rehabilitation Potential Physical Therapy Diagnosis: Pt. has signs and symptoms consistent with R TKA, DOS 07/03/24. Pt. would benefit from PT to address her hypomobility, weakness, difficulty with gait and increased pain. Rehabilitation Potential: Excellent Anticipated Interventions Patient/Client Instruction: Educate patient on: Condition, Plan of Care, Risk Factors and Benefits of Fitness Program For the Purpose of:: To foster healthy habits, To improve decision making, To facilitate caregiver knowledge, To improve self management, To prevent re-injury and To improve ability to perform tasks related to life management Therapeutic Exercise to Include: Strength training, Power training, Balance training, Coordination, Body mechanics, Postural training, Flexibilty training, Gait and locomotor training, Passive ROM and Active ROM For the Purpose of:: To decrease pain, To decrease swelling/inflammation, To increase ROM, To improve nutrient delivery to tissue, To increase oxygenation perfusion, To improve muscle performance and motor function, To improve ability to perform ADL's, To increase tolerance to activity/condition/position, To improve performance and independence with ADL's and To decrease level of supervision to perform tasks Cryotherapy (ice pack, ice massage): Yes Vasopneumatic device: Yes For the Purpose of:: To decrease pain, To decrease swelling/inflammation and To increase ROM Text: Thank you for the opportunity to evaluate your patient. For Medicare and Medicare HMO plans, please review the plan of care and approve it. It will need to be FAXED BACK to us at [phone] for Medicare purposes. For Medicare only, by signing this I certify the plan of care. Please let me know if there are questions or concerns regarding this plan of care. Physician Signature: Date:
--- NOTE | 2024-08-06 11:06 | HP.PTREVAL ---
Re-Evaluation Intro: Dr. Kiet Sanchez, DO, It has been my pleasure to treat RICHI PRATT over the last 13 visits for R TKA, DOS 07/03/24. Please see the progress note below for an update on the physical therapy plan of care! Subjective Subjective: Pt. reports overall doing better. Pt. reports 50% better overall. Pt. reports still having issues with bending over, carrying objects. Pt. still has initial pain with getting up. Pt. is having some trouble sleeping as well. Objective Objective/Function: AROM: 0-4-115 PROM: 0-0-121deg. MMT: RLE; hip: flexion 44.5#, knee: ext 40.23, flexion 29.7# LLE: knee: ext 49.6#, flexion 40.7#, STAIRS: Pt. completed with 2HR with reciprocal pattern. Light decrease in functional stability issues with controlled descending. Increase use of UEs during R loading phase in both directions. Plan Plan Plan: I am extending POC x3 per week for 4 weeks. She needs to continue to work on end range of motion and progressive functional strengthening. Add in stability with stairs as well. Balance/Gait/Functional tests Balance/Special Test Scores Lower Extremity Functional Score: 36 TUG Test Time Seconds: 9.2 Tug Test: <10 sec.=free mobile 30 Second Chair Rise Test Seconds: 12 6 Minute Walk Test: 1379 feet no AD WOMAC Total Score: 72 WOMAC Percentage: 25.0000 Goals Goals Goal 1:: LTG: Pt. to be I with HEP. Goal Time Frame: 6-8 Weeks Goal Progress: Progressing Goal 2:: LTG: Pt. to have increased R knee ROM to 0-0-120deg. Goal Progress: Progressing Goal 3:: LTG: Pt. have symmetrical BLE strength. Goal Time Frame: 4-6 Weeks Goal Progress: Progressing Goal 4:: STG: Pt. to be able to sleep throughout the night without increase in symptoms. Goal Time Frame: 4-6 Weeks Goal Progress: Progressing Goal 5:: LTG: pt. to be able to ambulate with normal gait pattern without use of AD. Goal Time Frame: 4-6 Weeks Goal Progress: Progressing Goal 6:: LTG: Pt. to complete TUG with time less than 8sec without AD. Goal Time Frame: 4-6 Weeks Goal Progress: Progressing Anticipated Interventions Anticipated Interventions Patient/Client Instruction: Educate patient on: Condition, Plan of Care, Risk Factors and Benefits of Fitness Program For the Purpose of:: To foster healthy habits, To improve decision making, To facilitate caregiver knowledge, To improve self management, To prevent re-injury and To improve ability to perform tasks related to life management Therapeutic Exercise to Include: Strength training, Power training, Balance training, Coordination, Body mechanics, Postural training, Flexibilty training, Gait and locomotor training, Passive ROM and Active ROM For the Purpose of:: To decrease pain, To decrease swelling/inflammation, To increase ROM, To improve nutrient delivery to tissue, To increase oxygenation perfusion, To improve muscle performance and motor function, To improve ability to perform ADL's, To increase tolerance to activity/condition/position, To improve performance and independence with ADL's and To decrease level of supervision to perform tasks Cryotherapy (ice pack, ice massage): Yes Vasopneumatic device: Yes For the Purpose of:: To decrease pain, To decrease swelling/inflammation and To increase ROM Re-Evaluation Ending Re-evaluation ending: Please do not hesitate to contact me at [phone] by phone or if you have questions or concerns regarding this new plan of care! Sincerely, Michel Irvin DPT
== END 2024-09-07 19:00 | disposition home or self-care (01) ==
LOC: PT 15:00
PROVIDERS: PCP Family Medicine; Referring Provider Orthopaedic Surgery; Visit Provider Orthopaedic Surgery
DX: M17.11 Unilateral primary osteoarthritis, right knee (principal); Z96.651 Presence of right artificial knee joint
CPT/HCPCS: 97016; 97110; 97116; 97140; 97161; 97530

== ENCOUNTER → 2025-02-22 | Outpatient (CLI) | payer OTHER, SELFPAY ==
[2025-02-22 11:08] LABS: AUTO B FLUID DILUENT BKGD CT WBC <0.1 RBC <0.01 (W<.1,R<.01); RBC /Synovial Fluid 0.015 10^6/uL (0); Source- Body Fluid SYNOVIAL; Synovial Fld Mononuclear WBC # 0.287 10^3/ul; Synovial Fld Mononuclear WBC % 72.0 %; Synovial Fld Polynuclear WBC # 0.112 10^3/uL; Synovial Fld Polynuclear WBC % 28.0 %; Total Cell Count Synovial Fld 0.4140 10^3/uL (0.000-0.000); WBC / Synovial Fluid 0.3990 10^3/uL (0.000-0.002)
[2025-02-22 11:09] LABS: Source / Synovial Fluid RIGHT KNEE
[2025-02-22 11:10] LABS: Appearance /Synovial Fluid Sl Cl (CLEAR); Color / Synovial Fluid Pink (Pale Yellow)
[2025-02-22 11:41] LABS: CRYSTALS, BODY FLUID NO CRYSTALS SEEN
[2025-02-22 12:14] LABS: Body Fluid QC Type(s) BF1Q,BF2Q; Monocyte /Synovial Fluid 25 %; Other Cell /Synovial Fluid 10 %
[2025-02-22 12:34] LABS: Hematocrit 40.3 % (37-47); Hemoglobin 13.8 g/dL (12.0-15.0); Immature Granulocytes Count 0.030 X10^3/uL (0.0-0.0); Mean Corp Hgb Conc 34.2 g/dL (32-36); Mean Corpuscular Volume 85.9 fL (81-99); Mean Platelet Vol. 9.6 fl (6.2-12.0); NRBC Flagged by Analyzer 0 % (0-5); Platelet Count 314 K/mm3 (150-450); RBC Distribution Width CV 12.3 % (11.6-14.6); RBC Distribution Width SD 38.5 fl (35.1-43.9); Red Blood Count 4.69 M/mm3 (4.2-5.4); White Blood Count 7.3 K/mm3 (4.4-11.0)
[2025-02-22 13:17] LABS: CRP < 3.00 mg/L (0.0-3.0); Uric Acid 4.9 mg/dL (2.6-6.0)
[2025-02-23 17:08] LABS: GLUCOSE, SYNOVIAL FLUID 89 mg/dL (.); PROTEIN, SYNOVIAL FLUID 3.1 g/dL (.)
== END | disposition home or self-care (01) ==
PROVIDERS: PCP Family Medicine; Referring Provider Orthopaedic Surgery; Visit Provider Orthopaedic Surgery
DX: M25.461 Effusion, right knee (principal)
CPT/HCPCS: 36415; 82945; 84157; 84550; 85025; 85652; 86140; 87070; 87075; 87205; 89050; 89051; 89060